=== PATIENT | female | born 1975 | race Caucasian/White ===

== ENCOUNTER → 2016-06-11 | Day surgery (SDC) | payer OTHER ==
[2016-06-10 07:50] VITALS: Ht 168.9 cm; Wt 90.9 kg
[~2016-06-11] VITALS: Ht 168.9 cm; Wt 90.9 kg
[~2016-06-11] MED LIST: AMLO2.5T PO; ATROPINE SULFATE 0.1 MG/ML 5ML SYR IV PRN; CEFAZOLIN IV 2,000 MG/60 ML D5W IV ONE; CETI10TA84 PO; CHOL1000 PO; DEXAMETHASONE SOD INJ 4 MG/ML VIAL ONE; EpHEDrine SULFATE INJ 50 MG/ML AMP IV PRN; FENTANYL CITRATE INJ 50 MCG/1 ML 2 ML VIAL IV PRN; FENTANYL CITRATE INJ 50 MCG/1 ML 2 ML VIAL ONE; HYDR-5688 PO; LIDOCAINE HCL 1% 20 ML VIAL ONE; LIDOCAINE HCL 2% 2 ML VIAL (20MG/ML) ONE; MIDAZOLAM HCL 1 MG/ML 2ML VIAL ONE; ONDANSETRON INJ 2 MG/ML 2 ML VIAL IV PRN; ONDANSETRON INJ 2 MG/ML 2 ML VIAL ONE; PRLSR20 PO; PROPOFOL IV EMULSION 10 MG/ML 20 ML VIAL IV ONE
--- NOTE | 2016-06-11 10:32 | History & Physical Bridge Note ---
H&P Re-Evaluation Bridge Note: I have examined the patient, reviewed the History & Physical and in the interval since the performance of the History & Physical I have noted the following changes of clinical significance: No changes noted
--- NOTE | 2016-06-11 10:51 | Discharge Instructions ---
Discharge Instructions Visit Reason for Visit: Breast Ca Discharge Discharge Diagnosis / Problem: A-port removal Activity Recommendations Activity Limitations: as noted below Shower/Bathe: tomorrow Anesthesia . Post Anesthesia Instructions: If you have had General Anesthesia or IV Sedation: * Do not drive today. * Resume driving when surgeon permits. * Do not make important decisions or sign legal documents today. * Call surgeon for: 1. Temperature elevations greater than 101 degrees F. 2. Uncontrollable pain. 3. Excessive bleeding. 4. Persistent nausea and vomiting. 5. Medication intolerance (nausea, vomiting or rash). * For nausea and vomiting use only clear liquids such as: tea, soda, bouillon until nausea subsides, then gradually increase diet as tolerated. * If you have any concerns or questions, call your surgeon's office. If physician is unavailable and it is an emergency, call 911 or go to the nearest emergency room. . Instructions / Follow-Up Instructions / Follow-Up Dr. Edgar's office in 1 week, [phone] Diet Recommendations Recommended Home Diet: no limitations Pending Studies Studies pending at discharge: no Medical Emergencies . Who to Call and When: Medical Emergencies: If at any time you feel your situation is an emergency, please call 911 immediately. . Non-Emergent Contact Non-Emergency issues call your: Surgeon Call Non-Emergent contact if: you have a fever, temperature is above 101.5, your pain is not controlled, wound has increased redness . . "Provider Documentation" section prepared by Jean Marie Fairchild.
[2016-06-11 11:25] VITALS: TEMP 36.3
--- NOTE | 2016-06-11 11:25 | [facility] Post Operative Brief Note ---
Immediate Operative Summary Operative Date Jun 11, 2016. Pre-Operative Diagnosis mri port left subclavian(no longer needed) Post-Operative Diagnosis same Procedure(s) Performed removal Surgeon akin Test Boring Crew Chief Surgeon(s) 0 Estimated Blood Loss 1.5cc Findings port not incorporated in tissue Specimens c and s port Anesthesia 1%xyl(5cc) and iv sedation
--- NOTE | 2016-06-11 11:32 | Anesthesia Progress Nt - [facility] ---
Anesthesia Post Op Note Date & Time Jun 11, 2016 at 11:32 Vital Signs Pain Intensity: 0 Vital Signs Past 12 Hours Date Time Temp Pulse Resp B/P Pulse Ox O2 Delivery O2 Flow Rate FiO2 06/11/16 09:28 36.8 82 16 126/90 97 Room Air Notes Mental Status: alert / awake / arousable, participated in evaluation Pt Amnestic to Procedure: Yes Nausea / Vomiting: adequately controlled Pain: adequately controlled Airway Patency, RR, SpO2: stable & adequate BP & HR: stable & adequate Hydration State: stable & adequate Anesthetic Complications: no major complications apparent
[2016-06-11 11:50] VITALS: BP 137/92; PULSE 69; O2SAT 98
--- NOTE | 2016-06-11 11:54 | OPERATIVE REPORT ---
DATE OF OPERATION: 06/11/2016 PREOPERATIVE DIAGNOSIS: MRI compatible port in left subclavian, end of life no longer needed. POSTOPERATIVE DIAGNOSIS: Same. PROCEDURE: Removal of the MRI compatible port in the left subclavian area. SURGEON: Dr. Edgar. OPERATION AND FINDINGS: SUMMARY: The patient was brought into the operating room theater. She was in supine position. Left chest was prepped Betadine solution and properly draped. IV sedation was given. We then used 1% Xylocaine without epinephrine, a total of about 5 mL. We infiltrated above the port site which the incision was appreciated underneath the incision. Incision was made, deepened through subcutaneous tissue, very little bleeding but of interest the port was exposed in the subcutaneous tissue and there was no true fluid around it. I was surprised to see this. Therefore we took the Prolene sutures that were incorporated in 3 different area, took it out and removed the port and the catheter which was checked for being completely intact. Due to the fact that this was not incorporated even though there was no pleural fluid I elected to culture the port. Pressure was held in the subclavian area for approximately 5 minutes. Hemostasis appeared satisfactory with continuous pressure. I closed the wound 4-0 nylon vertical mattress continuous fashion and a pressure dressing was applied. The procedure was tolerated well by the patient and she was taken to recovery room in good condition. I attest to the content of the Intraoperative Record and any orders documented therein. Any exceptio ns are noted below.
== END | disposition home or self-care (01) ==
LOC: X.SURG 09:00
PROVIDERS: ATTEND Surgery
DX: C50.919 Malignant neoplasm of unspecified site of unspecified female breast (principal); J45.909 Unspecified asthma, uncomplicated; Z90.10 Acquired absence of unspecified breast and nipple; Z80.8 Family history of malignant neoplasm of other organs or systems; Z80.3 Family history of malignant neoplasm of breast

== ENCOUNTER → 2016-08-14 | Outpatient (CLI) | payer OTHER ==
[~2016-08-14] MED LIST changes: -ATROPINE SULFATE 0.1 MG/ML 5ML SYR IV PRN; -CEFAZOLIN IV 2,000 MG/60 ML D5W IV ONE; -DEXAMETHASONE SOD INJ 4 MG/ML VIAL ONE; -EpHEDrine SULFATE INJ 50 MG/ML AMP IV PRN; -FENTANYL CITRATE INJ 50 MCG/1 ML 2 ML VIAL IV PRN; -FENTANYL CITRATE INJ 50 MCG/1 ML 2 ML VIAL ONE; -LIDOCAINE HCL 1% 20 ML VIAL ONE; -LIDOCAINE HCL 2% 2 ML VIAL (20MG/ML) ONE; -MIDAZOLAM HCL 1 MG/ML 2ML VIAL ONE; -ONDANSETRON INJ 2 MG/ML 2 ML VIAL IV PRN; -ONDANSETRON INJ 2 MG/ML 2 ML VIAL ONE; -PROPOFOL IV EMULSION 10 MG/ML 20 ML VIAL IV ONE
== END | disposition home or self-care (01) ==
LOC: C.LAB 21:27
DX: Z02.83 Encounter for blood-alcohol and blood-drug test (principal)

== ENCOUNTER → 2016-10-20 | Outpatient (CLI) | payer OTHER ==
[2016-10-20 15:38] LABS: BASO % 0.1 %; BASO ABS # 0.01 K/uL (0-0.2); COMPLETE YES; EOS % 5.3 %; HEMATOCRIT 43.4 % (37-47); IG% 0.1 %; LYMPH % 35.2 %; LYMPH ABS # 2.45 K/uL (1.2-3.4); MEAN CELL VOLUME 91.2 fL (80-100); MEAN CORPUSCULAR HEMOGLOBIN 30.7 pg (25-34); MEAN CORPUSCULAR HGB CONC 33.6 g/dl (32-36); MEAN PLATELET VOLUME 10.1 fL (7.4-10.4); MONO % 9.2 %; NEUT % 50.1 %; PLATELET COUNT 329 K/uL (130-400); RED BLOOD COUNT 4.76 M/uL (4.2-5.4); WHITE BLOOD COUNT 6.97 K/uL (4.8-10.8)
[2016-10-20 16:00] LABS: ALT/SGPT 45 U/L (12-78); AST/SGOT 21 U/L (15-37); BLOOD UREA NITROGEN 13 mg/dl (7-18); BUN/CREATININE RATIO 15.1 (10-20); CALCIUM 9.8 mg/dl (8.5-10.1); CARBON DIOXIDE 29 mmol/L (21-32); CHLORIDE 103 mmol/L (98-107); CHOLESTEROL 359 mg/dl (0-200); CREATININE 0.87 mg/dl (0.60-1.20); GLUCOSE 86 mg/dl (70-99); MAGNESIUM 1.8 mg/dl (1.8-2.4); POTASSIUM 4.1 mmol/L (3.5-5.1); SODIUM 136 mmol/L (136-145); TRIGLYCERIDES 194 mg/dl (0-150); URIC ACID 4.7 mg/dl (2.6-7.2); VERY LOW DENSITY LIPOPROT CALC 39 mg/dl
[2016-10-20 16:10] LABS: ALB/GLOB RATIO 1.1 (0.9-2); ALKALINE PHOSPHATASE 64 U/L (45-117); CHOLESTEROL/HDL RATIO 5.7; HDL CHOLESTEROL 63 mg/dl; LDL CHOLESTEROL CALCULATED 257 mg/dl; TOTAL IRON BINDING CAPACITY 368 mcg/dl (250-450)
[2016-10-20 16:18] LABS: PREG INTERNAL NEGATIVE QC NEG CLEAR BACKGROUND; PREG INTERNAL POSITIVE QC POS CONTROL LINE
[2016-10-21 07:05] LABS: ESTIMATED AVERAGE GLUCOSE 111 mg/dl; HA1C FLAG Normal (Normal)
== END | disposition home or self-care (01) ==
LOC: C.LAB 14:27
PROVIDERS: ATTEND Family Medicine
DX: R73.09 Other abnormal glucose (principal); E55.9 Vitamin D deficiency, unspecified; D51.9 Vitamin B12 deficiency anemia, unspecified; E78.9 Disorder of lipoprotein metabolism, unspecified; R53.83 Other fatigue

== ENCOUNTER → 2016-11-01 | Outpatient (CLI) | payer OTHER ==
--- NOTE | 2016-11-01 14:16 | DIAGNOSTIC IMAGING REPORT ---
TRANSVAG-FEMALE PELVIS, PELVIC COMPLETE NON OB CLINICAL HISTORY: 40 years-old Female presenting with AMENORRHEA. TECHNIQUE: Real-time grayscale and color and spectral Doppler ultrasound imaging of the pelvis was performed first using a transabdominal approach and subsequently transvaginal. COMPARISON: CT from 2014. FINDINGS: Uterus: Retroverted. The uterus measures 7.0 x 4.1 x 5.1 cm. Prominent nabothian cyst noted in the cervix. Homogeneously isoechoic 1.8 cm intramural mass with a possible minor subserosal component arising from the posterior wall of the uterus, consistent with a fibroid. Multifocal cystic change in the endometrium. The endometrium measures 6 mm in thickness. Right adnexa: Right ovary contains a 2.7 cm follicle. Normal color Doppler flow and arterial and venous waveforms in the peripheral ovarian parenchyma. The right ovary measures 2.6 x 3.1 x 3.3 cm. Left adnexa: Left ovary contains a 2.4 cm follicle. Normal color Doppler flow and arterial and venous waveforms in the left ovarian parenchyma. The left ovary measures 3.6 x 2.3 x 2.3 cm. Other: No free fluid. IMPRESSION: 1. No abnormal thickening of the endometrium. Multifocal cystic change in the endometrium can be seen in the setting of adenomyosis among other etiologies. 2. Uterine fibroid. 3. Normal ovaries with prominent follicles. Electronically signed by: Perez Zabala 11/01/2016 2:15 PM Dictated Date/Time: 11/01/2016 2:07 PM
== END | disposition home or self-care (01) ==
LOC: C.ULTR 12:40
PROVIDERS: ATTEND Family Medicine
DX: N91.2 Amenorrhea, unspecified (principal); D25.9 Leiomyoma of uterus, unspecified

== ENCOUNTER → 2016-11-24 | Outpatient (CLI) | payer OTHER ==
--- NOTE | 2016-11-24 12:24 | DIAGNOSTIC IMAGING REPORT ---
TWO VIEW CHEST CLINICAL HISTORY: Breast cancer. FINDINGS: PA and lateral chest radiographs are compared to study dated 02/13/2015. The PA view is degraded by patient rotation. The cardiomediastinal silhouette is unremarkable. The lungs and pleural spaces are clear. There is no pneumothorax. The skeletal structures are osteopenic. Spinal scoliosis is observed and spinal rods are in place. IMPRESSION: No active disease in the chest. Electronically signed by: Suman Foote M.D. 11/24/2016 12:23 PM Dictated Date/Time: 11/24/2016 12:22 PM
[2016-11-24 12:43] LABS: BASO % 0.3 %; BASO ABS # 0.02 K/uL (0-0.2); COMPLETE YES; EOS % 7.1 %; HEMATOCRIT 44.2 % (37-47); IG% 0.1 %; LYMPH % 34.4 %; LYMPH ABS # 2.65 K/uL (1.2-3.4); MEAN CELL VOLUME 92.5 fL (80-100); MEAN CORPUSCULAR HEMOGLOBIN 31.4 pg (25-34); MEAN CORPUSCULAR HGB CONC 33.9 g/dl (32-36); MEAN PLATELET VOLUME 10.6 fL (7.4-10.4); MONO % 6.5 %; NEUT % 51.6 %; PLATELET COUNT 306 K/uL (130-400); RED BLOOD COUNT 4.78 M/uL (4.2-5.4)
[2016-11-24 13:08] LABS: BLOOD UREA NITROGEN 11 mg/dl (7-18); CREATININE 0.85 mg/dl (0.60-1.20); GLUCOSE 100 mg/dl (70-99)
[2016-11-24 13:09] LABS: ALT/SGPT 48 U/L (12-78); BUN/CREATININE RATIO 13.3 (10-20); CALCIUM 9.7 mg/dl (8.5-10.1); CARBON DIOXIDE 30 mmol/L (21-32); CHLORIDE 104 mmol/L (98-107); POTASSIUM 4.1 mmol/L (3.5-5.1); SODIUM 139 mmol/L (136-145)
[2016-11-24 13:11] LABS: ALKALINE PHOSPHATASE 67 U/L (45-117); AST/SGOT 27 U/L (15-37)
== END | disposition home or self-care (01) ==
LOC: C.RAD 11:39
PROVIDERS: ATTEND Nurse Practitioner Family
DX: C50.912 Malignant neoplasm of unspecified site of left female breast (principal)

== ENCOUNTER → 2017-01-26 | Outpatient (CLI) | payer BC, OTHER ==
[~2017-01-26] MED LIST changes: -HYDR-5688 PO
--- NOTE | 2017-01-27 13:55 | MAMMOGRAPHY REPORT ---
BREAST MRI OF BOTH BREASTS : 01/26/2017 CLINICAL HISTORY: History of right breast cancer status post bilateral mastectomy and implant reconst ruction. COMPARISON: Comparison is made to exams dated: 11/26/2014 ultrasound biopsy, 11/26/2014 ultrasound, 2014 mammogram, 09/26/2014 mammogram, and 01/22/2016 breast MRI - [facility]. Technique: The patient was placed prone in a dedicated breast imaging coil. Precontrast axial T1 tyler ghted, axial T1-weighted fat saturation, and axial and sagittal T2 sequences were obtained. After th e administration of 9 mL of Gadavist IV contrast, sequential T1-weighted fat saturation images were o btained. Subtraction images were obtained of the dynamic contrast enhanced sequences, and 3-D reform ations were performed. The [employer] software was used for kinetic analysis. Findings: There are stable postsurgical changes from bilateral mastectomy with silicone implant reconstruction. Bilateral subpectoral silicone implants are intact without evidence of intracapsular or extracapsul ar rupture. There are no suspicious enhancing masses or areas of abnormal non-mass enhancement withi n either reconstructed breast. There has been no significant interval change compared to the prior b reast MRI. Two mildly prominent lymph nodes in the right axilla measuring 9 and 7 mm are not significantly iglesias ed compared to the 01/22/2016 breast MRI (series 801 image 32 and 28) and are therefore likely benign, especially given that a sentinel node biopsy yielded no metastatic disease at the time of surgery. Extramammary soft tissues are grossly unremarkable. IMPRESSION: ACR BI-RADS CATEGORY 2: BENIGN 1. No MRI evidence of malignancy in either reconstructed breast. No evidence of implant rupture. 2. Mildly prominent right axillary lymph nodes are stable compared to prior breast MRI dated 01/22/20 16, and are likely benign. Consider another follow-up bilateral breast MRI in one year to confirm lo nger stability of the right axillary lymph nodes. Leia Tomas M.D. 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
== END | disposition home or self-care (01) ==
LOC: C.MRI 13:12
PROVIDERS: ATTEND Nurse Practitioner Family
DX: Z85.3 Personal history of malignant neoplasm of breast (principal); Z90.13 Acquired absence of bilateral breasts and nipples; Z98.82 Breast implant status

== ENCOUNTER → 2017-04-06 | Outpatient (CLI) | payer OTHER | END | disposition home or self-care (01) | LOC: C.PAPS 15:43 | PROVIDERS: ATTEND Physician Assistant | DX: Z01.419 Encounter for gynecological examination (general) (routine) without abnormal findings (principal) ==

== ENCOUNTER → 2017-05-16 | Outpatient (CLI) | payer OTHER ==
[2017-05-16 13:44] LABS: FOLLICLE STIMULAT HORMONE 7.68 IU/L
== END | disposition home or self-care (01) ==
LOC: C.LAB 10:38
PROVIDERS: ATTEND Physician Assistant
DX: N92.6 Irregular menstruation, unspecified (principal)

== ENCOUNTER → 2017-05-24 | Outpatient (CLI) | payer OTHER | END | disposition home or self-care (01) | LOC: C.LABSPEC 17:18 | PROVIDERS: ATTEND Obstetrics & Gynecology | DX: N91.5 Oligomenorrhea, unspecified (principal) ==

== ENCOUNTER → 2017-08-08 | Outpatient (CLI) | payer OTHER ==
[2017-08-08 16:35] LABS: BASO % 0.1 %; BASO ABS # 0.01 K/uL (0-0.2); EOS % 5.3 %; EOS ABS # 0.36 K/uL (0-0.5); HEMATOCRIT 40.5 % (37-47); HEMOGLOBIN 14.2 g/dL (12.0-16.0); IG# 0.01 K/uL (0.00-0.02); LYMPH % 35.8 %; LYMPH ABS # 2.41 K/uL (1.2-3.4); MEAN CELL VOLUME 90.2 fL (80-100); MEAN CORPUSCULAR HEMOGLOBIN 31.6 pg (25-34); MEAN CORPUSCULAR HGB CONC 35.1 g/dl (32-36); MEAN PLATELET VOLUME 10.3 fL (7.4-10.4); MONO % 6.5 %; MONO ABS # 0.44 K/uL (0.11-0.59); NEUT % 52.2 %; PLATELET COUNT 285 K/uL (130-400); RED CELL DISTRIBUTION WIDTH CV 12.3 % (11.5-14.5); RED CELL DISTRIBUTION WIDTH SD 40.5 fL (36.4-46.3); WHITE BLOOD COUNT 6.73 K/uL (4.8-10.8)
[2017-08-08 17:12] LABS: ALBUMIN 3.9 gm/dl (3.4-5.0); ALKALINE PHOSPHATASE 50 U/L (45-117); ALT/SGPT 29 U/L (12-78); AST/SGOT 17 U/L (15-37); BLOOD UREA NITROGEN 10 mg/dl (7-18); CALCIUM 9.2 mg/dl (8.5-10.1); CARBON DIOXIDE 28 mmol/L (21-32); CHOLESTEROL 241 mg/dl (0-200); GLUCOSE 86 mg/dl (70-99); LDL CHOLESTEROL CALCULATED 162 mg/dl; POTASSIUM 3.6 mmol/L (3.5-5.1); SODIUM 137 mmol/L (136-145); TOTAL PROTEIN 7.5 gm/dl (6.4-8.2); URIC ACID 4.9 mg/dl (2.6-7.2)
[2017-08-08 17:21] LABS: TRANSFERRIN 259 mg/dl (200-360)
[2017-08-09 06:06] LABS: HEMOGLOBIN A1C 5.3 % (4.5-5.6)
== END | disposition home or self-care (01) ==
LOC: C.LAB 15:15
PROVIDERS: ATTEND Family Medicine
DX: E88.81 Metabolic syndrome and other insulin resistance (principal); E55.9 Vitamin D deficiency, unspecified; D51.9 Vitamin B12 deficiency anemia, unspecified; E78.9 Disorder of lipoprotein metabolism, unspecified; R53.83 Other fatigue; C50.911 Malignant neoplasm of unspecified site of right female breast

== ENCOUNTER 2024-06-13 14:42 | Inpatient (IN) ==
--- NOTE | 2024-06-13 15:06 | Emergency Department Note ---
Impression & Plan Displaced fracture of left fibula, Displaced fracture of medial malleolus, Ankle deformity, Fall due to ice or snow, Ankle pain, Foot cramps ED Provider Note CHIEF COMPLAINT: Left ankle broken HISTORY OF PRESENTING ILLNESS: The patient is a 48-year-old female who presents to the emergency department with her due to a left ankle injury/deformity. Patient confirms that she slipped and fell on ice. Denies head injury, LOC, blood thinners, chest pain, abdominal pain, or any other injury from the fall. She is in a significant amount of pain. No open injury or wound. REVIEW OF SYSTEMS: See HPI for pertinent positives and pertinent negatives. ALLERGIES: Tramadol, grass, cat dander MEDICATIONS: See below PAST MEDICAL HISTORY: See below PHYSICAL EXAM: VITALS: Vitals are noted on the nurse's note and reviewed by myself. Vital signs stable. GENERAL: 48-year-old female, lying in bed in obvious pain, in no acute distress, nondiaphoretic, well-developed well-nourished. SKIN: Capillary refill less than 2 seconds. HEENT: Normocephalic. PERRLA. EOMI. Nares patent. Mucous membranes moist. Neck is supple without nuchal rigidity. HEART: Regular rate and rhythm without murmurs gallops or rubs. LUNGS: Clear to auscultation bilaterally without wheezes, rales or rhonchi. No retractions or accessory muscle use. ABDOMEN: Soft, nontender, without masses or organomegaly. No guarding or rebound tenderness. MUSCULOSKELETAL: Left ankle with obvious deformity. Her left foot is turned at a 90 degree angle externally rotated in comparison to her anderson. Patient is neurovascularly intact. 2+ dorsal pedis pulses palpated bilaterally. Significant edema and ecchymosis noted of left ankle. Patient denies injury to the knee and no pain is appreciated upon palpation. NEURO: Patient was alert and oriented. Normal sensation to light and sharp touch. No focal neurological deficits. DIFFERENTIAL DIAGNOSIS: Sprain, strain, fracture, dislocation, contusion, intracranial injury, ligament injury, tendon injury, vessel injury, among others. ED COURSE AND MEDICAL DECISION MAKING: HISTORY FROM INDEPENDENT HISTORIAN: The patient herself and her . MEDICATIONS GIVEN: Morphine 4 mg IV, Zofran 4 mg IV, 0.25 mg Dilaudid, 0.25 mg Dilaudid INTERPRETATION OF LABS: No labs were obtained. INTERPRETATION OF IMAGING: Imaging studies were interpreted by myself and read by radiology as per the imaging section of this note. X-ray left ankle - left ankle trimalleolar fracture/dislocation. X-ray left foot - there is no fracture identified in the foot. ESCALATION OF CARE CONSIDERED: Escalation of care was considered due to the patient's presentation and obvious deformity of her left ankle. Patient needed reduced and pain control. After discussion with orthopedics the ankle is too unstable to send her home overnight. The patient was admitted for pain management and will be evaluated tomorrow morning by orthopedics for surgical operation. CONSULTATIONS: [facility] orthopedics - Dr. Ang -I had a discussion with Dr. Ang regarding the left ankle fracture. He informed me that the ankle should be reduced and put in a posterior long splint with stirrups. We both had a discussion regarding her symptoms, pain management, and mechanism of action of the fall. He encouraged that she be admitted for overnight evaluation due to the significance and instability of the fracture. Reduction was performed and postreduction films were placed. I had another discussion with Dr. Ang regarding the postreduction films and he confirmed that the reduction went smoothly and that the foot is in an appropriate place until he sees her tomorrow. He stated that he would be admitting her to the hospitalist team and would place the orders appropriately. PROCEDURES: Left ankle reduction - the patient was given appropriate pain control. The ED techs were in the room to place the splint immediately after the reduction. I held the left calf with my left hand while I used my right hand to apply downward traction on the ankle and rotated the ankle that was externally rotated back into its regular anatomical position. After the reduction the ankle was held in stability while they applied the splint. Patient was able to wiggle her toes and can feel me touching her through the splint. Postreduction films were ordered showing appropriate reduction. Patient tolerated the procedure extremely well and no complications were met. MDM SUMMARY: The patient is a 48-year-old female who presents to the emergency department due to a left ankle injury acquired by slipping on snow. There is an obvious deformity of the ankle and her boot remains on and in place. Denies head injury, LOC, blood thinners, chest pain, abdominal pain, or any other injury from the fall. She is in a significant amount of pain. There is no sign of open injury or wound. Patient denies all other injuries from the fall. Left ankle with obvious deformity showing at her left foot is turned at a 90 degree angle externally rotated in comparison to her anderson which is facing anteriorly. Patient is neurovascularly intact. Significant edema and ecchymosis noted to the left ankle. Patient denies injury to the knee and no pain is appreciated upon palpation. Patient was alert and oriented and able to answer all questions. Confirms she is in a moderate amount of pain. Morphine 4 mg IV and Zofran 4 mg IV were given. X-ray of the left ankle and foot were ordered. Remainder of the physical exam was unremarkable and can be seen in detail above. X-ray left ankle shows left ankle trimalleolar fracture/dislocation. The patient has fractured her fibula and tibia. I placed a consult with [facility] orthopedics of Dr. Ang which can be seen in detail above. 2 doses of 0.25 mg Dilaudid was given for pain management for the reduction. The patient's pain was controlled and the ankle was reduced. The procedure for the ankle reduction can be seen above. Postreduction films were obtained. Dr. Ang then placed the orders for admission and overnight pain management for the patient. Confirmed that he would operate on her tomorrow. Patient was handed over to the hospitalist team and all of her questions were answered thoroughly. Patient's pain was controlled and she agreed to the treatment plan. The patient was admitted in stable condition. DIAGNOSIS: Displaced fracture of left fibula, displaced fracture of medial malleolus, ankle deformity, fall due to ice or snow, ankle pain, foot cramps The chart was completed utilizing [employer] Speech voice recognition software. Grammatical errors, random word insertions, pronoun errors, and incomplete sentences are an occasional consequence of this system due to software limitations, ambient noise, and hardware issues. Any formal questions or concerns about the content, text, or information contained within the body of this dictation should be directly addressed to the provider for clarification. Past Med/Surg History Problem List (Updated 06/13/24 @ 21:13 by Lisette Albarran PA-C) Foot cramps (Acute) Ankle pain (Acute) Fall due to ice or snow (Acute) Ankle deformity (Acute) Displaced fracture of medial malleolus (Acute) Displaced fracture of left fibula (Acute) History of colon polyps Encounter for general adult medical examination with abnormal findings Eczema Acute bronchospasm due to viral infection Acute bronchitis Encounter for general adult medical examination without abnormal findings Conjunctivitis Sinusitis Tinnitus Vertigo Infiltrating ductal carcinoma of right breast HER 2 positive 11/2014, 6 courses of taxol, herceptin, & carboplatin Impaired glucose metabolism Hypertension Vitamin D deficiency Acquired hypothyroidism Mixed hyperlipidemia Cervical stenosis (uterine cervix) Dysfunctional uterine bleeding Medical History Eczema GERD (gastroesophageal reflux disease) Hypertension Hyperlipidemia Asthma DOESNT USE INHALER / WAS ALLERGY RELATED HX: breast cancer HER 2 positive 11/2014--sx/chemo History of scoliosis Missed Varicella Surgical History History of breast biopsy History of colonoscopy History of breast augmentation RECONSTRUCTION H/O tooth extraction H/O bilateral mastectomy (2014) H/O lymph node biopsy sentinel S/P dilation and curettage History of cryosurgery History of surgery port insertion 02/13/15- Dr. Cabezas replacement of access port 03/07/15- Dr. Cabezas removal of MRI compatible port in left subclavian 06/11/16- Dr. Edgar History of back surgery 2 METAL RODS 8 PINS FOR SCOLIOSIS FROM SHOULDER BLADES DOWN TO LUMBAR Family History Grandmother (Paternal) Breast cancer Aunt Breast cancer paternal aunt Mother Dyslipidemia Hypothyroid Malignant melanoma Hypertension Father Dyslipidemia Nephrolithiasis Hypertension Brother Dyslipidemia Hypertension Brother Colonic polyp Asthma Aunt Stroke, Onset Age: 28 Other No family history of adverse response to anesthesia Denies family history of Ovarian cancer Colorectal cancer Social History (Updated 04/02/24 @ 13:45 by Latesha Nice) Smoking Status: Never smoker Second Hand Exposure: No; Do You Dip or Chew Tobacco: No; Hx Alcohol Use: Yes Alcohol type: beer, wine and hard liquor Alcohol Intake Frequency: 4 or More x per/Week Hx Substance Use: Yes (edible marijuana (advised on policy)) Prescribed Medications: Marijuana Preferred Language: Sinhala Communication Ability: Effective Visual Impairment: Diminished Hearing Ability: Normal [employer] Supervisor Required: No Beliefs That Will Affect Care: None marital status: Single Current Living Situation: Spouse current occupational status: employed Feels Safe at Home: Yes Childhood Exposure to Second-Hand Smoke: No Diet: regular caffeine: Yes Dental Care, Regularly: Yes Physical Activity Frequency: Does not Exercise Physical Activity Frequency Comment: active lifestyle Seatbelt Use: always Sunscreen Use: Yes Assistive Devices: None Allergies Allergies Allergy/AdvReac Type Severity Reaction Status Date / Time cat dander Allergy Intermediate CAT AND Verified 06/13/24 18:29 DOG DANDER-ITCHYEYES,RUNNY NOSE grass pollen-perennial rye, Allergy Intermediate GRASS,MOLD-ITCHY Verified 06/13/24 18:29 standar EYES, RUNNY NOSE tramadol Allergy Mild Urticaria Verified 06/13/24 18:29 Home Meds Home Medications Medication Instructions Recorded Confirmed cetirizine 10 mg disintegrating 10 mg PO PM 02/07/19 05/25/24 tablet ibuprofen 200 mg capsule (Motrin 200 mg PO Q6H PRN Pain 02/14/19 05/25/24 IB) albuterol sulfate 90 mcg/actuation 2 puff inhalation Q6H PRN 04/02/24 05/25/24 aerosol inhaler Shortness Of Breath cholecalciferol (vitamin D3) 25 25 mcg PO HS 05/17/24 05/25/24 mcg (1,000 unit) tablet (Vitamin D3) levothyroxine 50 mcg tablet 50 mcg PO QAM 05/17/24 05/25/24 Previous Rx's Medication Instructions Recorded amlodipine 2.5 mg tablet 2.5 mg PO PM #90 tabs 05/03/24 famotidine 40 mg tablet 40 mg PO HS #90 tabs 06/04/24 Results & Data (ED) Vital Signs Vital Signs - 24 hr 06/13/24 14:47 06/13/24 15:55 06/13/24 18:00 Temperature 36.9 C Temperature Source Temporal Artery Scan Pulse Rate 82 Pulse Rate [Finger] 72 74 Respiratory Rate 18 16 Respiratory Effort / Characteristics Non-Labored Spontaneous Respiratory Depth Normal Blood Pressure 132/86 Blood Pressure [Right Arm] 124/79 151/100 H Blood Pressure Mean 101 Blood Pressure Mean [Right Arm] 94 117 Blood Pressure Position Sitting Pulse Oximetry 99 98 96 Oxygen Delivery Method Room Air Room Air Sepsis Recent Fever Within 48 Hours No Sepsis New/Unexplained Change in Mental Status N/A Sepsis Action Taken by Nursing No Action Required Laboratory Data 06/13/24 14:57 06/13/24 14:57 Lab Results 06/13/24 Range/Units 14:57 WBC 7.89 (4.8-10.8) K/ul RBC 4.90 (4.20-5.40) M/uL Hgb 14.3 (12.0-16.0) g/dl Hct 42.6 (37.0-47.0) % MCV 86.9 (80.0-100.0) fL MCH 29.2 (25.0-34.0) pg MCHC 33.6 (32.0-36.0) g/dL RDW Std Deviation 39.4 (36.4-46.3) fL RDW Coeff of Shivani 12.3 (11.5-14.5) % Plt Count 344 (130-400) K/uL MPV 10.6 (9.4-12.4) fL Immature Gran % (Auto) 0.3 % Neut % (Auto) 49.8 % Lymph % (Auto) 40.6 % Karnes % (Auto) 6.0 % Eos % (Auto) 2.9 % Baso % (Auto) 0.4 % Neut # (Auto) 3.94 (1.40-6.50) K/uL Lymph # (Auto) 3.20 (1.20-3.40) K/uL Karnes # (Auto) 0.47 (0.11-0.59) K/uL Eos # (Auto) 0.23 (0.00-0.50) K/uL Baso # (Auto) 0.03 (0.00-0.20) K/uL Immature Gran # (Auto) 0.02 (0.01-0.20) K/uL Sodium 138 (136-145) mmol/L Potassium 3.4 L (3.5-5.1) mmol/L Chloride 102 (98-107) mmol/L Carbon Dioxide 27 (21-32) mmol/L Anion Gap 9 (3-11) BUN 14 (6-23) mg/dl Creatinine 0.81 (0.6-1.2) mg/dl Est Cr Clr Drug Dosing Not Reportable eGFR 88.38 BUN/Creatinine Ratio 17.3 (10-20) Glucose 110 H (70-99(Fasting)) mg/dl Calcium 9.7 (8.6-10.3) mg/dl Administered Medications Hydromorphone HCl (Hydromorphone Inj 0.5 Mg/0.5 Ml Syr) 0.5 mg IV Q2H PRN PRN Reason: Pain Stop: 06/27/24 15:57 Last Admin: 06/13/24 20:43 Dose: 0.5 mg Documented By: Admin: 06/13/24 18:27 Dose: 0.5 mg Documented By: PAULETTE Ketorolac Tromethamine (Ketorolac 30 Mg/Ml Vial) 30 mg IV Q6H PRN PRN Reason: Pain Stop: 06/18/24 15:53 Last Admin: 06/13/24 18:27 Dose: 30 mg Documented By: PAULETTE Discontinued Medications Hydromorphone HCl (Hydromorphone Inj 0.5 Mg/0.5 Ml Syr) 0.25 mg IV NOW STA Stop: 06/13/24 15:51 Last Admin: 06/13/24 15:54 Dose: 0.25 mg Documented By: PAULETTE Hydromorphone HCl (Hydromorphone Inj 0.5 Mg/0.5 Ml Syr) 0.25 mg IV NOW STA Stop: 06/13/24 16:36 Last Admin: 06/13/24 16:58 Dose: 0.25 mg Documented By: DEIDRA Morphine Sulfate (Morphine Sulfate 4 Mg/Ml 1 Ml Carp\Vial) 4 mg IV NOW STA Stop: 06/13/24 15:00 Last Admin: 06/13/24 15:08 Dose: 4 mg Documented By: EMELIA Ondansetron HCl (Ondansetron Inj 2 Mg/Ml 2 Ml Vial) 4 mg IV NOW STA Stop: 06/13/24 15:00 Last Admin: 06/13/24 15:07 Dose: 4 mg Documented By: EMELIA Imaging Data Radiologist's Impression: Ankle X-Ray 06/13/24 14:59 XR ankle LT 2V CLINICAL HISTORY: fall COMPARISON: None FINDINGS: There is an acute displaced fracture of the distal shaft of the left fibula. In addition, there are displaced fractures of the medial malleolus and posterior distal left tibia. Several associated small fracture fragments are present. The ankle mortise is disrupted. Talar dome is intact. IMPRESSION: Left ankle trimalleolar fracture/dislocation. ACT 112: Negative or not required by law. Electronically signed by: Prasad Nunez M.D. 06/13/2024 3:49 PM Foot X-Ray 06/13/24 14:59 XR foot LT 2V CLINICAL HISTORY: fall COMPARISON: None FINDINGS: 2 views of the left foot demonstrate the known, displaced ankle fracture. There is no foot fracture identified. IMPRESSION: As above ACT 112: Negative or not required by law. Electronically signed by: Genesis Sharif M.D. 06/13/2024 3:52 PM Chest X-Ray 06/13/24 15:57 Clinical History: Preoperative examination Technique: PA and lateral views of the chest were obtained Comparison is made to the prior examination dated 11/24/2016 Findings: There are no confluent pulmonary infiltrates. The heart size is within normal limits. No pleural effusion or pneumothorax is seen. There is no definite pulmonary nodule. No fracture is noted. There is scoliosis. There is an extensive thoracolumbar fusion Impression: No active disease Electronically signed by Chencho White 06-13-2024 4:35 PM Ankle X-Ray 06/13/24 17:11 EXAMINATION: X-ray ankle left 2 view CLINICAL HISTORY: Post reduction PRIORS: None TECHNIQUE: AP and crosstable lateral view FINDINGS: Overlying cast material noted. Comminuted displaced fractures of the distal tibia and fibula noted with disruption of the mortise. Anterior location of the distal tibia and fibula present with respect to the talus. Multiple free bony fragments noted. Calcaneus intact. Midfoot appears unremarkable. Diffuse soft tissue swelling present. IMPRESSION: Comminuted fracture-dislocation of the ankle with disruption of the mortise. Electronically signed by Di Fabian 06-13-2024 6:07 PM Discharge Plan Visit Data Chief Complaint: Ankle Pain Stated Complaint: LT ANKLE BROKEN/TWISTED AROUND ED Provider: Milad Jin ED Midlevel Provider: Lisette Albarran Discharge Problem: Displaced fracture of left fibula, Displaced fracture of medial malleolus, Ankle deformity, Fall due to ice or snow, Ankle pain, Foot cramps Patient Disposition: Admitted As Inpatient Condition: Good Forms Stand Alone Forms: Official Limited Virtual Prescriptions Prescriptions: No Action amlodipine 2.5 mg tablet 2.5 mg PO PM Qty: 90 3RF famotidine 40 mg tablet 40 mg PO HS Qty: 90 3RF albuterol sulfate 90 mcg/actuation HFA aerosol inhaler 2 puff inhalation Q6H PRN (Reason: Shortness Of Breath) cetirizine 10 mg tablet,disintegrating 10 mg PO PM ibuprofen [Motrin IB] 200 mg capsule 200 mg PO Q6H PRN (Reason: Pain) levothyroxine 50 mcg tablet 50 mcg PO QAM cholecalciferol (vitamin D3) [Vitamin D3] 25 mcg (1,000 unit) Tablet 25 mcg PO HS Referrals Referrals: Krishna Miller MD [Primary Care Provider] - Discharge Problem: Displaced fracture of left fibula Qualifiers: Encounter type: initial encounter Fibula location: lateral malleolus Fracture type: closed Qualified Code(s): S82.62XA - Displaced fracture of lateral malleolus of left fibula, initial encounter for closed fracture Displaced fracture of medial malleolus Qualifiers: Encounter type: initial encounter Fracture type: closed Laterality: left Q ualified Code(s): S82.52XA - Displaced fracture of medial malleolus of left tibia, initial encounter for closed fracture Ankle deformity Qualifiers: Laterality: left Qualified Code(s): M21.962 - Unspecified acquired deformity of left lower leg Fall due to ice or snow Qualifiers: Encounter type: initial encounter Qualified Code(s): W00.9XXA - Unspecified fall due to ice and snow, initial encounter Ankle pain Qualifiers: Chronicity: acute Laterality: left Qualified Code(s): M25.572 - Pain in left ankle and joints of left foot
[2024-06-13] MEDS: ONDANSETRON INJ 2 MG/ML 2 ML VIAL IV STA (15:07)
[2024-06-13] MEDS: MoRPHine SULFATE 4 MG/ML 1 ML CARP\\VIAL IV STA (15:08)
--- NOTE | 2024-06-13 15:50 | XRay Report ---
XR ankle LT 2V CLINICAL HISTORY: fall COMPARISON: None FINDINGS: There is an acute displaced fracture of the distal shaft of the left fibula. In addition, there are displaced fractures of the medial malleolus and posterior distal left tibia. Several associ ated small fracture fragments are present. The ankle mortise is disrupted. Talar dome is intact. IMPRESSION: Left ankle trimalleolar fracture/dislocation. ACT 112: Negative or not required by law. Electronically signed by: Prasad Nunez M.D. 06/13/2024 3:49 PM
--- NOTE | 2024-06-13 15:53 | XRay Report ---
XR foot LT 2V CLINICAL HISTORY: fall COMPARISON: None FINDINGS: 2 views of the left foot demonstrate the known, displaced ankle fracture. There is no foot fracture identified. IMPRESSION: As above ACT 112: Negative or not required by law. Electronically signed by: Genesis Sharif M.D. 06/13/2024 3:52 PM
[2024-06-13] MEDS ORDERED: ONDANSETRON INJ 2 MG/ML 2 ML VIAL IV PRN (15:54)
[2024-06-13] MEDS: HYDROmorphone INJ 0.5 MG/0.5 ML SYR IV STA ×2 (15:54→16:58)
[2024-06-13] MEDS ORDERED: Patient's HEIGHT &/or WEIGHT Needed STA (16:02)
[2024-06-13 16:21] LABS: Basophils # (auto) 0.03 K/uL (0.00-0.20); Basophils % (auto) 0.4 %; Eosinophils # (auto) 0.23 K/uL (0.00-0.50); Eosinophils % (auto) 2.9 %; Hematocrit (blood only) 42.6 % (37.0-47.0); Hemoglobin 14.3 g/dl (12.0-16.0); Immature Granulocytes # (auto) 0.02 K/uL (0.01-0.20); Immature Granulocytes % (auto) 0.3 %; Lymphocytes % (auto) 40.6 %; Mean Corpuscular Hemoglobin 29.2 pg (25.0-34.0); Mean Corpuscular Hgb Conc 33.6 g/dL (32.0-36.0); Mean Corpuscular Volume 86.9 fL (80.0-100.0); Mean Platelet Volume 10.6 fL (9.4-12.4); Monocytes # (auto) 0.47 K/uL (0.11-0.59); Neutrophils # (auto) 3.94 K/uL (1.40-6.50); Neutrophils % (auto) 49.8 %; Platelet Count 344 K/uL (130-400); RDW Coefficient of Variation 12.3 % (11.5-14.5); RDW Standard Deviation 39.4 fL (36.4-46.3); White Blood Count 7.89 K/ul (4.8-10.8)
--- NOTE | 2024-06-13 16:22 | Emergency Department Note ---
ED Visit Note I was consulted in regards to the patient's presentation and plan of care by the Advanced Practice Provider. I engaged in a detailed/meaningful discussion with the Advanced Practice Provider in regards to this patient's workup and plan of care. I performed a substantiative portion of the medical decision making following discussion with the Advanced Practice Provider. Please see the Advanced Practice Provider's separate documentation for full details of the patient's visit. I agree with the assessment and plan of Lisette Albarran PA-C. Milad Jin, Emergency Medicine .
[2024-06-13 16:26] LABS: Anion Gap 9 (3-11); BUN Creatinine Ratio 17.3 (10-20); Blood Urea Nitrogen 14 mg/dl (6-23); Calcium 9.7 mg/dl (8.6-10.3); Carbon Dioxide 27 mmol/L (21-32); Chloride 102 mmol/L (98-107); Glucose 110 mg/dl (70-99(Fasting)); Potassium 3.4 mmol/L (3.5-5.1); Sodium 138 mmol/L (136-145)
--- NOTE | 2024-06-13 16:36 | XRay Report ---
Clinical History: Preoperative examination Technique: PA and lateral views of the chest were obtained Comparison is made to the prior examination dated 11/24/2016 Findings: There are no confluent pulmonary infiltrates. The heart size is within normal limits. No pleural effusion or pneumothorax is seen. There is no definite pulmonary nodule. No fracture is noted. There is scoliosis. There is an extensive thoracolumbar fusion Impression: No active disease Electronically signed by Chencho White 06-13-2024 4:35 PM
--- NOTE | 2024-06-13 18:07 | XRay Report ---
EXAMINATION: X-ray ankle left 2 view CLINICAL HISTORY: Post reduction PRIORS: None TECHNIQUE: AP and crosstable lateral view FINDINGS: Overlying cast material noted. Comminuted displaced fractures of the distal tibia and fibula noted with disruption of the mortise. Anterior location of the distal tibia and fibula present with respect to the talus. Multiple free bony fragments noted. Calcaneus intact. Midfoot appears unremarkable. Diffuse soft tissue swelling present. IMPRESSION: Comminuted fracture-dislocation of the ankle with disruption of the mortise. Electronically signed by Di Fabian 06-13-2024 6:07 PM
[2024-06-13] MEDS: HYDROmorphone INJ 0.5 MG/0.5 ML SYR IV PRN (18:27)
[2024-06-13] MEDS: KETOROLAC 30 MG/ML VIAL IV PRN (18:27)
[2024-06-13] MEDS ORDERED: ALBUTEROL HFA 8 GM INHALER INH PRN (22:48)
[2024-06-13] MEDS: FAMOTIDINE 40 MG TABLET PO SCH (23:54)
[2024-06-13] MEDS: CETIRIZINE HCL 10 MG TABLET PO SCH (23:54)
[2024-06-13] MEDS: amLODIPine BESYLATE 5 MG TAB PO SCH (23:54)
[2024-06-14] MEDS: LEVOTHYROXINE SODIUM 50 MCG TABLET PO SCH (06:33)
--- NOTE | 2024-06-14 07:40 | History & Physical Report ---
Date of Service June 14, 2024 Assessment & Plan (1) Fracture dislocation of left ankle: She was educated on this injury and treatment for it. We recommend ORIF of the left ankle. Procedure was explained and she wants to proceed with surgery to fix this. She is npo. Continue splint, ice, elevation of the left ankle. NWB LLE. Surgery will be today with Dr. Ang. History of Present Illness Chief Complaint: . Primary Care Provider: Krishna Miller MD .Vianney is a 48 year old patient admitted yesterday with a left ankle fracture/dislocation. She was in her back yard with her dog and slipped on the ice and a stick causing her to injure the ankle. Her and friend were able to help her and get her to the hospital. She denies any other injuries. Denies numbness or tingling. Pain has been reasonably controlled. Allergies Allergy/AdvReac Type Severity Reaction Status Date / Time cat dander Allergy Intermediate CAT AND Verified 06/13/24 18:29 DOG DANDER-ITCHYEYES,RUNNY NOSE grass pollen-perennial rye, Allergy Intermediate GRASS,MOLD-ITCHY Verified 06/13/24 18:29 standar EYES, RUNNY NOSE tramadol Allergy Mild Urticaria Verified 06/13/24 18:29 Home Medications Medication Instructions Recorded Confirmed Type cetirizine 10 mg disintegrating 10 mg PO PM 02/07/19 06/13/24 History tablet amlodipine 2.5 mg tablet 2.5 mg PO PM #90 tabs 05/03/24 06/13/24 Rx levothyroxine 50 mcg tablet 50 mcg PO QAM 05/17/24 06/13/24 History famotidine 40 mg tablet 40 mg PO PM 06/13/24 06/13/24 History Past Med/Surg History Problem List (Updated 06/14/24 @ 07:38 by Edson Marin PA-C) Fracture dislocation of left ankle Foot cramps (Acute) Ankle pain (Acute) Fall due to ice or snow (Acute) Ankle deformity (Acute) Displaced fracture of medial malleolus (Acute) Displaced fracture of left fibula (Acute) History of colon polyps Encounter for general adult medical examination with abnormal findings Eczema Acute bronchospasm due to viral infection Acute bronchitis Encounter for general adult medical examination without abnormal findings Conjunctivitis Sinusitis Tinnitus Vertigo Infiltrating ductal carcinoma of right breast HER 2 positive 11/2014, 6 courses of taxol, herceptin, & carboplatin Impaired glucose metabolism Hypertension Vitamin D deficiency Acquired hypothyroidism Mixed hyperlipidemia Cervical stenosis (uterine cervix) Dysfunctional uterine bleeding Medical History Eczema GERD (gastroesophageal reflux disease) Hypertension Hyperlipidemia Asthma DOESNT USE INHALER / WAS ALLERGY RELATED HX: breast cancer HER 2 positive 11/2014--sx/chemo History of scoliosis Missed Varicella Surgical History History of breast biopsy History of colonoscopy History of breast augmentation RECONSTRUCTION H/O tooth extraction H/O bilateral mastectomy (2014) H/O lymph node biopsy sentinel S/P dilation and curettage History of cryosurgery History of surgery port insertion 02/13/15- Dr. Cabezas replacement of access port 03/07/15- Dr. Cabezas removal of MRI compatible port in left subclavian 06/11/16- Dr. Edgar History of back surgery 2 METAL RODS 8 PINS FOR SCOLIOSIS FROM SHOULDER BLADES DOWN TO LUMBAR Family History Grandmother (Paternal) Breast cancer Aunt Breast cancer paternal aunt Mother Dyslipidemia Hypothyroid Malignant melanoma Hypertension Father Dyslipidemia Nephrolithiasis Hypertension Brother Dyslipidemia Hypertension Brother Colonic polyp Asthma Aunt Stroke, Onset Age: 28 Other No family history of adverse response to anesthesia Denies family history of Ovarian cancer Colorectal cancer Social History Smoking Status: Never smoker Second Hand Exposure: No; Do You Dip or Chew Tobacco: No; Hx Alcohol Use: No Hx Substance Use: Yes Prescribed Medications: Marijuana Last Used Substance Other:: 06/12/24 Substance Use Type Other:: edible marijuana Preferred Language: Belarusian Communication Ability: Effective Visual Impairment: Diminished Hearing Ability: Normal Labor And Employment Paralegal Required: No Beliefs That Will Affect Care: None marital status: Single Current Living Situation: Spouse current occupational status: employed Feels Safe at Home: Yes Safety Concerns: Feels Safe At This Time Childhood Exposure to Second-Hand Smoke: No Diet: regular caffeine: Yes Dental Care, Regularly: Yes Physical Activity Frequency: Does not Exercise Physical Activity Frequency Comment: active lifestyle Seatbelt Use: always Sunscreen Use: Yes Assistive Devices: Glasses Assistive Devices Comment: readers Review of Systems All systems reviewed & are unremarkable except as noted in HPI & below. Physical Exam . alert and oriented. NAD. VSS Left ankle: splint intact. Able to move toes appropriately. Brisk refill. Sensation intact. I did not remove the splint. Results & Data Results & Data Laboratory Results . Diagnostic Findings .xrays of the left ankle show a trimalleolar fracture dislocation of the left ankle. PG Care Time/CCT Total # of Minutes Spent Total Time Spent with Patient: Total time spent is greater than 50% in coordination of care (as documented) at patient's floor/unit and/or counseling patient: Coding Level of Care Code 07069 INT INP/OBS CARE 3/75MIN (57 - DECISION FOR SURGERY) Diagnoses Fracture dislocation of left ankle S82.892A
--- NOTE | 2024-06-14 12:01 | History & Physical Bridge Note ---
Date of Service June 14, 2024 History & Physical Bridge Note I have examined the patient, reviewed the History & Physical and in the interval since the performance of the History & Physical I have noted the following changes of clinical significance: no changes noted
--- NOTE | 2024-06-14 12:07 | Anesthesiology Consultation ---
Date of Service June 14, 2024 Assessment & Plan Chart Review Chart Review: Acceptable Risk for Surgery and Patient NOT seen in Pre Admission Testing Consults Requested none ASA [id number] Proposed Anesthesia Anesthesia Type: General Regional Regional Laterality: Left Site: Popliteal History Surgery Operation Date: 06/14/24 13:05 Proposed Procedures p Left Ankle Fracture Open Reduction Internal Fixation - Ray Ang, Height/Weight Height: 5 ft 4 in Weight: 96.3 kg Allergies Allergy/AdvReac Type Severity Reaction Status Date / Time cat dander Allergy Intermediate CAT AND Verified 06/13/24 18:29 DOG DANDER-ITCHYEYES,RUNNY NOSE grass pollen-perennial rye, Allergy Intermediate GRASS,MOLD-ITCHY Verified 06/13/24 18:29 standar EYES, RUNNY NOSE tramadol Allergy Mild Urticaria Verified 06/13/24 18:29 Medications Home Medications Medication Instructions Recorded Confirmed Last Taken cetirizine 10 mg disintegrating 10 mg PO PM 02/07/19 06/13/24 06/12/24 tablet amlodipine 2.5 mg tablet 2.5 mg PO PM #90 tabs 05/03/24 06/13/24 06/12/24 levothyroxine 50 mcg tablet 50 mcg PO QAM 05/17/24 06/13/24 06/13/24 famotidine 40 mg tablet 40 mg PO PM 06/13/24 06/13/24 06/12/24 Active Medications Generic Name Dose Route Start Last Admin Trade Name Freq PRN Reason Stop Dose Admin Amlodipine Besylate 2.5 mg 06/13/24 22:48 06/13/24 23:54 Amlodipine Besylate 5 Mg Tab PO 07/13/24 22:47 2.5 mg PM HARLEEN Administration Cetirizine HCl 10 mg 06/13/24 22:48 06/13/24 23:54 Cetirizine Hcl 10 Mg Tablet PO 07/13/24 22:47 10 mg PM HARLEEN Administration Famotidine 40 mg 06/13/24 22:48 06/13/24 23:54 Famotidine 40 Mg Tablet PO 07/13/24 22:47 40 mg HS HARLEEN Administration Hydromorphone HCl 0.5 mg 06/13/24 15:58 06/14/24 10:28 Hydromorphone Inj 0.5 Mg/0.5 Ml Syr IV 06/27/24 15:57 0.5 mg Q2H PRN Administration Pain Ketorolac Tromethamine 30 mg 06/13/24 15:54 06/14/24 12:06 Ketorolac 30 Mg/Ml Vial IV 06/18/24 15:53 30 mg Q6H PRN Administration Pain Levothyroxine Sodium 50 mcg 06/14/24 06:30 06/14/24 06:33 Levothyroxine Sodium 50 Mcg Tablet PO 07/14/24 06:29 50 mcg DAILYBB HARLEEN Administration Past Medical History Medical History Eczema GERD (gastroesophageal reflux disease) Hypertension Hyperlipidemia Asthma DOESNT USE INHALER / WAS ALLERGY RELATED HX: breast cancer HER 2 positive 11/2014--sx/chemo History of scoliosis Missed Varicella Hypothyroidism Exercise / Class Metabolic Activity II 4-5 Yardwork/Stairs/Walk up hill Past Family History Family History Grandmother (Paternal) Breast cancer Aunt Breast cancer paternal aunt Mother Dyslipidemia Hypothyroid Malignant melanoma Hypertension Father Dyslipidemia Nephrolithiasis Hypertension Brother Dyslipidemia Hypertension Brother Colonic polyp Asthma Aunt Stroke, Onset Age: 28 Other No family history of adverse response to anesthesia Denies family history of Ovarian cancer Colorectal cancer Past Surgical History Surgical History History of breast biopsy History of colonoscopy History of breast augmentation RECONSTRUCTION H/O tooth extraction H/O bilateral mastectomy (2014) H/O lymph node biopsy sentinel S/P dilation and curettage History of cryosurgery History of surgery port insertion 02/13/15- Dr. Cabezas replacement of access port 03/07/15- Dr. Cabezas removal of MRI compatible port in left subclavian 06/11/16- Dr. Edgar History of back surgery 2 METAL RODS 8 PINS FOR SCOLIOSIS FROM SHOULDER BLADES DOWN TO LUMBAR Past Anesthesia History No Hx of Anesthesia Complications and No Family Hx of Anesthesia Complications History of PONV No Hx of PONV and No Hx of Motion Sickness Social History Smoking Status: Never smoker Do You Dip or Chew Tobacco: No Hx Alcohol Use: No Alcohol type: beer, wine and hard liquor alcohol intake frequency: a few times a week Hx Substance Use: Yes substance use type: marijuana Substance Use Type Other:: edible marijuana Last Used Substance Other:: 06/12/24 Physical Exam Vital Signs Last Vital Signs Temp 36.9 C 06/13/24 14:47 Pulse 56 L 06/14/24 10:03 Resp 13 06/14/24 10:03 BP 94/70 L 06/14/24 10:00 Pulse Ox 96 06/14/24 10:03 O2 Del Method Nasal Cannula 06/14/24 06:00 O2 Flow Rate 2 06/14/24 06:00 Testing Laboratory Results 06/13/24 14:57 06/13/24 14:57 Electrocardiogram Date: 06/14/24 Findings: + SB @ (@ 57;NS T wave abnl) Chest X-Ray Date: 06/13/24 Findings: + NAD and + other (scoliosis)
[2024-06-14] MEDS ORDERED: BUPIVACAINE 0.25% PF 30 ML VIAL ONE (12:25)
[2024-06-14] MEDS ORDERED: EPINEPHrine INJ 1 MG/ML AMP ONE (12:25)
[2024-06-14] MEDS ORDERED: DEXAMETHASONE SOD INJ 4 MG/ML VIAL ONE ×2 (12:25→12:56)
[2024-06-14] MEDS: LACTATED RINGER'S 1,000 ML IV SCH (12:42)
[2024-06-14] MEDS ORDERED: ONDANSETRON INJ 2 MG/ML 2 ML VIAL IV PRN ×2 (12:55→16:19)
[2024-06-14] MEDS ORDERED: HYDROmorphone INJ 1 MG/ML SYRINGE IV PRN (12:55)
[2024-06-14] MEDS ORDERED: PROMETHAZINE HCL 6.25 MG in SODIUM CHLORIDE 0.9% 50 ML IV PRN (12:55)
[2024-06-14] MEDS ORDERED: ePHEDrine sulfate 50 MG/ML AMP IV PRN (12:55)
[2024-06-14] MEDS ORDERED: NALOXONE HCL 0.4 MG/1 ML VIAL/CARP IV PRN ×2 (12:55→16:19)
[2024-06-14] MEDS ORDERED: ATROPINE SULFATE 0.1 MG/ML 10ML SYR IV PRN (12:55)
[2024-06-14] MEDS ORDERED: LABETALOL HCL IV 5 MG/ML 20ML IV PRN (12:55)
[2024-06-14] MEDS ORDERED: FLUMAZENIL 0.1 MG/1 ML 10 ML VIAL IV PRN (12:55)
[2024-06-14] MEDS ORDERED: fentaNYL citrate PF 100 MCG/2 ML VIAL IV PRN (12:55)
[2024-06-14] MEDS ORDERED: ONDANSETRON INJ 2 MG/ML 2 ML VIAL ONE ×2 (12:56→14:53)
[2024-06-14] MEDS ORDERED: fentaNYL citrate PF 100 MCG/2 ML VIAL ONE (12:56)
[2024-06-14] MEDS ORDERED: MIDAZOLAM HCL 1 MG/ML 2ML VIAL ONE (12:56)
[2024-06-14] MEDS ORDERED: PROPOFOL IV EMULSION 10 MG/ML 20 ML VIAL IV ONE (12:56)
[2024-06-14] MEDS ORDERED: ROCURONIUM BROMIDE 10 MG/ML 5 ML VIAL IV ONE (12:59)
[2024-06-14] MEDS: ceFAZolin 2000MG 2,000 MG/15 ML SYR IV SCH (13:36)
[2024-06-14] MEDS ORDERED: ePHEDrine sulfate 50 MG/5 ML SYR ONE (13:52)
[2024-06-14] MEDS: BUPIVACAINE/EPINEPHRINE 0.5% MPF 1:200,000 30 ML VIAL ONE (15:19)
--- NOTE | 2024-06-14 15:19 | Operative Report ---
PG Post Operative Report Pre & Post Diagnosis Operation Date: 06/14/24 13:05 Pre-Op Diagnosis: Displaced trimalleolar ankle Fracture Post-Op Diagnosis: Displaced trimalleolar ankle Fracture I identified the patient and participated in the time-out.: Yes Procedure Operation Date: 06/14/24 13:05 Actual Procedures p Left Ankle Fracture Open Reduction Internal Fixation(Left) - Ray Ang DO Surgeon Ray Ang DO [employer] Assurance [employer] Leader Ricardo Nieto PA-C Estimated Blood Loss 5 Findings Consistent with Post-Op Diagnosis Specimens None Description of Procedure On June 14, 2024 Yaneli was brought down from her hospital room to the preoperative holding area. The operative extremity identified and signed. She given a preoperative antibiotic. She was taken back to the operative room and laid on table supine position. She was put under general anesthesia. The left ankle was prepped and draped sterile fashion. A timeout was done. The patient and the operative extremity was properly identified. The ankle was then reduced. The medial malleolus was addressed first. A curvilinear incision was made directly over the medial malleolus. Dissection was taken down through the fascia. The fracture was easily exposed. The fracture was reduced with a reduction clamp. 2 guidepins were placed perpendicular to the fracture fragment. Appropriate reduction of the medial malleolus and placement of the screws were checked on fluoroscopy. 244 mm 4.0 mm Synthes cannulated screws were then placed over the wires. The guidewires and then removed. Fluoroscopic images showed good alignment of the fracture. Attention was then turned to the fibula. A long longitudinal incision was made directly over the distal fibula. Dissection was taken down through the fascia. The fracture was easily identified. It was an oblique fracture mostly in the sagittal played. A 6 hole Synthes distal fibular locking plate was placed. The fracture was reduced with a reduction clamp. A single locking screw was placed proximally. A single locking screw was then placed distally. The clamp was removed. I was happy with the overall reduction. The remaining proximal and distal locking screws were then placed. All screws were placed with fluoroscopic assistance to ensure there with appropriate length. The ankle mortise looked well reduced. The lateral x-ray was taken. I was very interested in the posterior malleolar fragment. She had no instability with the posterior malleolus. There was slight displacement but it seemed to involve about 20% of the posterior malleolus. At this point I felt it was best not to add hardware to it. Final fluoroscopic images were taken and saved. The deep layer on the lateral side was closed with #0 Vicryl suture. Skin was closed with 3-0 Vicryl and dariel. She was then placed in a trauma splint. She was then extubated and transferred to a hospital bed. She was taken to the postanesthesia care unit in stable condition. She tolerated the procedure well. Ricardo Nieto PA-C, was present for the entire procedure. He was critical for patient positioning, prepping, draping, retraction exposure, wound closure and application of sterile dressing. I attest to the content of the Intraoperative Record and any orders documented therein. Any exceptions are noted below.
--- NOTE | 2024-06-14 16:01 | Electrocardiogram Report ---
Test Reason : Blood Pressure : */* mmHG Vent. Rate : 57 BPM Atrial Rate : 57 BPM P-R Int : 176 ms QRS Dur : 86 ms QT Int : 428 ms P-R-T Axes : 35 44 9 degrees QTcB Int : 416 ms Sinus bradycardia Nonspecific T wave abnormality Abnormal ECG When compared with ECG of 06-Aug-2015 17:05, Nonspecific T wave abnormality now evident in Anterior leads Confirmed by Irvin García ([id number]) on 06/14/2024 4:01:21 PM Referred By: REFERRED SELF Confirmed By: Irvin García
[2024-06-14] MEDS ORDERED: MAGNESIUM HYDROXIDE SUSP 30 ML UDC PO PRN (16:19)
[2024-06-14] MEDS ORDERED: bisacodyL 10 MG SUPP PR PRN (16:19)
[2024-06-14] MEDS ORDERED: METOCLOPRAMIDE HCL INJ 5 MG/ML 2 ML VIAL IV PRN (16:19)
--- NOTE | 2024-06-14 16:34 | Fluoroscopy Report ---
FL ankle LT min 3V RTN CLINICAL HISTORY: LEFT ANKLE FX COMPARISON STUDY: Left ankle radiographs June 13, 2024. FLUOROSCOPY TIME: 47 seconds. Ka,r: 1.0407 mGy FLUOROSCOPIC IMAGES: 2 FINDINGS: Fluoroscopy was provided during open reduction and internal fixation of the left ankle. Chari te and screw fixation of the fibular fracture is noted. 2 cannulated screws fixate the medial malleol ar fracture. Alignment is near anatomic. No residual ankle mortise widening. IMPRESSION: Fluoroscopy provided during open reduction and internal fixation of the left ankle. ACT 112: Negative or not required by law. Electronically signed by: Prasad Nunez M.D. 06/14/2024 4:33 PM
--- NOTE | 2024-06-14 16:41 | Anesthesiology Progress Note ---
Date of Service June 14, 2024 Anesthesia Post Procedure Vital Signs Vital Signs: Temp Pulse Pulse Pulse Resp BP BP 06/14/24 16:36 36.4 C L 72 18 118/75 06/14/24 16:10 36.9 C 82 16 120/66 06/14/24 16:00 91 H 16 06/14/24 15:50 36.7 C 83 15 06/14/24 15:40 96 H 15 06/14/24 15:30 79 13 06/14/24 15:23 36.4 C L 103 H 17 06/14/24 12:26 37.2 C 54 L 16 06/14/24 12:00 54 L 14 06/14/24 10:03 56 L 13 06/14/24 10:00 94/70 L 06/14/24 10:00 94/70 L 06/14/24 09:48 64 17 06/14/24 09:06 57 L 14 06/14/24 08:03 84 24 06/14/24 08:00 144/64 H 06/14/24 07:57 79 16 06/14/24 07:00 61 16 06/14/24 06:59 63 06/14/24 06:00 51 L 14 06/14/24 00:29 50 L 06/14/24 00:23 50 L 16 06/13/24 22:00 61 18 06/13/24 20:00 65 17 06/13/24 18:00 74 16 BP Pulse Ox O2 Del Method O2 Flow Rate 06/14/24 16:36 97 Room Air 06/14/24 16:10 96 Room Air 06/14/24 16:00 107/61 95 Room Air 0 06/14/24 15:50 120/53 L 92 Room Air 0 06/14/24 15:40 107/62 94 Room Air 0 06/14/24 15:30 97/63 L 97 Oxymask 4 06/14/24 15:23 109/56 L 97 Oxymask 8 06/14/24 12:26 105/66 96 Room Air 06/14/24 12:00 105/72 98 Nasal Cannula 2 06/14/24 10:03 96 06/14/24 10:00 06/14/24 10:00 06/14/24 09:48 96 06/14/24 09:06 95 06/14/24 08:03 06/14/24 08:00 06/14/24 07:57 98 06/14/24 07:00 97 06/14/24 06:59 06/14/24 06:00 110/73 99 Nasal Cannula 2 06/14/24 00:29 06/14/24 00:23 119/69 98 Nasal Cannula 2 06/13/24 22:00 130/81 92 Room Air 06/13/24 20:00 118/77 94 Room Air 06/13/24 18:00 151/100 H 96 Room Air Pain Intensity Left Ankle: Pain Intensity: 4 Transfer of Care Handoff Completed per policy Notes Mental Status: alert / awake / arousable and participated in evaluation Patient Amnestic to Procedure: Yes Nausea / Vomiting: adequately controlled Pain: adequately controlled Airway Patency, RR, SpO2: stable & adequate BP & HR: stable & adequate Hydration State: stable & adequate Anesthetic Complications: no major complications apparent and Pt Satisfied with anesthetic care
[2024-06-14] MEDS: KETOROLAC TROMETHAMINE 15 MG/ML VIAL IV SCH (18:11)
[2024-06-14] MEDS: oxyCODONE/ACETAMINOPHEN 5mg/325mg TAB PO PRN (19:57)
[2024-06-14] MEDS ORDERED: FAMOTIDINE 40 MG TABLET PO SCH (21:00)
[2024-06-14] MEDS: SENNA 8.6 MG TAB PO SCH (22:51)
[2024-06-14] MEDS: DOCUSATE SODIUM 100 MG CAP PO SCH (22:51)
[2024-06-14] MEDS: ASPIRIN 81 MG ECTAB PO SCH (22:52)
[2024-06-14] MEDS: ceFAZolin 1000MG 1,000 MG/7.5 ML SYR IV SCH (22:52)
[2024-06-15] MEDS: dexAMETHasone 4 MG TAB PO SCH (07:59)
[2024-06-15] MEDS: MULTIVITAMIN TAB PO SCH (07:59)
[2024-06-15 08:13] VITALS: PULSE 73
[2024-06-15 08:38] VITALS: O2SAT 96
--- NOTE | 2024-06-15 08:42 | Orthopedic Progress Note ---
Date of Service June 15, 2024 Assessment & Plan (1) Fracture dislocation of left ankle: Postop day 1 from a left ankle fracture open reduction internal fixation -Patient to be nonweightbearing left lower extremity -Aspirin 81 mg twice daily x 6+ weeks for DVT prophylaxis. This would also include early ambulation, MICHAEL stockings -Please work with PT/OT today. -If she is mobilizing well, can be discharged home today -Follow-up with Dr. Ang's clinic in 2 to 3 weeks for postop check. -Splint to remain in place. Please have the patient call with any questions or concerns regarding the splint. Subjective Operation Date: 06/14/24 13:05 Actual Procedures p Left Ankle Fracture Open Reduction Internal Fixation(Left) - Ray Ang DO Patient is postop day 1 from a left ankle fracture open reduction internal fixation. She is resting comfortably in her hospital recliner today. She states that the block is still in effect. States that Dr. Ang was in to see her this morning. She does not have any questions or concerns regarding her postop care at this point. Review of Systems All systems reviewed & are unremarkable except as noted in HPI & below. Physical Exam General: Alert and oriented. No acute distress. Left ankle is elevated on a pillow. Does not have much movement of her toes yet as block is still in effect. Limited sensation. She does have good perfusion with good capillary refill. Splint is in place without saturation. Results & Data Results & Data Laboratory Results . Diagnostic Findings . PG Care Time/CCT Total # of Minutes Spent Total Time Spent with Patient: Total time spent is greater than 50% in coordination of care (as documented) at patient's floor/unit and/or counseling patient: Coding Diagnoses Fracture dislocation of left ankle S82.892A
--- NOTE | 2024-06-15 08:44 | Discharge Summary ---
Date of Service June 15, 2024 Admission HPI (Per Admitting) .Vianney is a 48 year old patient admitted yesterday with a left ankle fracture/dislocation. She was in her back yard with her dog and slipped on the ice and a stick causing her to injure the ankle. Her and friend were able to help her and get her to the hospital. She denies any other injuries. Denies numbness or tingling. Pain has been reasonably controlled. Admission Exam (Per Admitting) . alert and oriented. NAD. VSS Left ankle: splint intact. Able to move toes appropriately. Brisk refill. Sensation intact. I did not remove the splint. Principal Diagnosis Same as "Discharge Diagnosis" noted below under Discharge Instructions. Discharge Exam General: Alert and oriented. No acute distress. Left ankle is elevated on a pillow. Does not have much movement of her toes yet as block is still in effect. Limited sensation. She does have good perfusion with good capillary refill. Splint is in place without saturation. Discharge Data Procedures Performed Operation Date: 06/14/24 13:05 Actual Procedures p Left Ankle Fracture Open Reduction Internal Fixation(Left) - Ray Ang, Ordered Studies 06/14/24 FL ankle LT min 3V RTN Routine 06/14/24 12:07 US - OR guided needle placemen Stat Hospital Course (1) Fracture dislocation of left ankle: Postop day 1 from a left ankle fracture open reduction internal fixation -Patient to be nonweightbearing left lower extremity -Aspirin 81 mg twice daily x 6+ weeks for DVT prophylaxis. This would also include early ambulation, MICHAEL stockings -Please work with PT/OT today. -If she is mobilizing well, can be discharged home today -Follow-up with Dr. Ang's clinic in 2 to 3 weeks for postop check. -Splint to remain in place. Please have the patient call with any questions or concerns regarding the splint. PG Care Time/CCT Total # of Minutes Spent Total Time Spent with Patient: Total time spent is greater than 50% in coordination of care (as documented) at patient's floor/unit and/or counseling patient: Discharge Plan Discharge Items Patient Disposition: Home - Self-Care Reason For Visit: DISPLACED ANKLE FRACTURE Discharge Diagnosis: s/p left ankle ORIF Condition on Discharge: Good Activity: Per Instructions section Non-emergency contact: Surgeon Call non-emergency contact if: your pain is not controlled, you have a fever and your temperature is above 101.5 Follow-up/Referrals: Krishna Miller MD [Primary Care Provider] - Diet: Regular Addtl Attending Provider Instructions: ORTHOPEDIC INSTRUCTIONS Activity Recommendations: Nonweightbearing left leg At 2 weeks we will remove the trauma splint and place you in a removable boot. You will still be nonweightbearing. You will be nonweightbearing for a total of 6 weeks from the day of surgery. After 6 weeks you can ambulate in the boot for 4 weeks. At 10 weeks you can usually begin ambulating in a sneaker. This timeline is subject to change depending on your x-ray findings in the office. Medications: Take aspirin 81 mg twice a day for 2 weeks to help prevent blood clots. Take the narcotic pain medications as needed. Dressing Care: Leave the trauma splint in place until follow-up in 2 weeks. Showering: Do not get the trauma splint wet. Diet: You may resume your previous diet. Things To Watch For: 1. Drainage from the incision site that occurs more than one week after your surgery. 2. Increased redness at the incision site. 3. Fever above 102 degrees Fahrenheit. 4. Unusual chest pain or shortness of breath. 5. Call [facility] at with any of the above problems Follow-Up Visit: Follow-up with Dr. Ang's PA (Ricardo Nieto) 2-3 weeks after your day of surgery. He will remove your dariel and answer any questions. If you have any additional questions or concerns, Dr Ang is usually in the office at the same time and will be available Please call the office to set up an appointment for a time that works for you. Pending Studies at Discharge: No Stand-Alone Forms: My [facility] [employer], Smoking Cessation Medications and DC Order Prescriptions: New oxycodone-acetaminophen [Percocet] 5-325 mg Tablet 1 tab PO Q4H PRN (Reason: pain) Qty: 30 0RF aspirin [Adult Aspirin Regimen] 81 mg tablet,delayed release (DR/EC) 81 mg PO BID Qty: 84 0RF Continued amlodipine 2.5 mg tablet 2.5 mg PO PM Qty: 90 3RF cetirizine 10 mg tablet,disintegrating 10 mg PO PM famotidine 40 mg tablet 40 mg PO PM levothyroxine 50 mcg tablet 50 mcg PO QAM Discharge Orders: Discharge Order (Routine); Ordered 06/15/24 Ordered By: Lora Ulloa Admission Data Admit Date/Time: 06/13/24 15:55 Attending Provider: Ray Ang Admit Provider: Ray Ang Primary Care Provider: Krishna Miller
[2024-06-15 12:04] VITALS: BP 138/87; RESP 18; TEMP 97.5
== END 2024-06-15 13:17 | disposition home or self-care (01) | DRG 494 ==
LOC: ED 14:42 → EDINP 15:55 → 3E 06-14 16:10